=== PATIENT | male | born 1995 | race African-American/Black ===

== ENCOUNTER 2019-05-08 09:38 | Emergency (ER) | payer OTHER ==
[~2019-05-08] VITALS: Ht 172.7 cm; Wt 55.9 kg
[2019-05-08] MEDS ORDERED: IBUPROFEN 600 MG TABLET PO ONE (10:30)
[2019-05-08 12:31] VITALS: BP 156/90
== END 2019-05-08 12:41 | disposition home or self-care (01) ==
LOC: EMS 09:41 → EDBD 09:41 → EMS 12:41
DX: S96.811A Strain of other specified muscles and tendons at ankle and foot level, right foot, initial encounter (principal); I10 Essential (primary) hypertension; Z91.040 Latex allergy status; W23.0XXA Caught, crushed, jammed, or pinched between moving objects, initial encounter; Y93.89 Activity, other specified; Y92.89 Other specified places as the place of occurrence of the external cause; Y99.8 Other external cause status
CPT/HCPCS: 29515